=== PATIENT | male | born 1935 | race Caucasian/White ===

== ENCOUNTER 2016-07-17 14:19 | Inpatient (IN) ==
[2016-07-20] MEDS ORDERED: *HR* HYDROcodone/Acet 5/325 mg TABLET PO PRN (18:03)
[2016-07-20] MEDS ORDERED: *HR* Warfarin 1 MG TABLET PO ONE (18:36)
[2016-07-20] MEDS: Metoprolol XL (24 HR) Succ 50 MG TAB.ER.24H PO SCH (22:56)
[2016-07-21 05:37] LABS: Basophils % 0.1 %; Eosinophils # 0.1 K/mcL (0.0-0.6); Eosinophils % 0.4 %; Hematocrit 38.5 % (37.5-50.1); Hemoglobin 12.5 g/dL (12.9-16.9); Immature Granulocytes % 0.8 % (0-4); Lymphocytes # 0.9 K/mcL (0.6-4.6); Mean Corpuscular HGB Conc 32.5 g/dL (31.6-35.5); Mean Corpuscular Hemoglobin 30.9 pg (28.0-33.3); Mean Corpuscular Volume 95.3 fL (83.0-100.0); Mean Platelet Volume 9.6 fL (9.4-12.4); Monocytes # 1.1 K/mcL (0.0-1.3); Monocytes % 8.1 %; Neutrophils # 10.9 K/mcL (1.6-8.9); Platelet Count 427 K/mcL (140-400); Red Blood Count 4.04 M/mcL (4.19-5.50); Red Cell Distribution Width 19.8 % (11.5-14.5); Segmented Neutrophils % 83.6 %
[2016-07-21 05:39] LABS: INR 2.6; Prothrombin Time 29.1 Seconds (9.4-12.1)
[2016-07-21] MEDS ORDERED: *HR* Amiodarone 200 MG TABLET PO SCH (09:00)
[2016-07-21] MEDS: Metoprolol XL (24 HR) Succ 50 MG TAB.ER.24H PO SCH ×2 (09:55→20:50)
[2016-07-21] MEDS: Cholecalciferol (D-3) 1,000 UNIT TABLET PO SCH (09:55)
[2016-07-21] MEDS: PredniSONE 20 MG TABLET PO SCH (09:56)
[2016-07-21] MEDS: Aspirin 81 MG TAB.CHEW PO SCH (09:56)
[2016-07-21 14:10] LABS: BUN/Creatinine Ratio 32 (6-26); Blood Urea Nitrogen 34 mg/dL (8-26); Calcium 8.6 mg/dL (8.6-10.8); Carbon Dioxide 26 mEq/L (19-29); Chloride 103 mEq/L (98-109); Glucose 96 mg/dL (70-99); Osmolality,Calculated 293 (280-300); Potassium 4.1 mEq/L (3.5-4.5); Sodium 138 mEq/L (136-145); eGFR For African Americans > 60 (> 60); eGFR For Non-African Americans > 60 (> 60)
[2016-07-21] MEDS: *HR* Amiodarone 200 MG TABLET PO SCH (17:56)
[2016-07-21] MEDS ORDERED: Warfarin perPT PO ONE (18:00)
[2016-07-21] MEDS ORDERED: *HR* Warfarin 1 MG TABLET PO ONE (18:00)
[2016-07-21] MEDS ORDERED: MOM Conc 10 ML UD.LIQ PO SCH (21:00)
[2016-07-22 05:50] LABS: INR 2.3
[2016-07-22] MEDS: Cholecalciferol (D-3) 1,000 UNIT TABLET PO SCH (11:20)
[2016-07-22] MEDS: Aspirin 81 MG TAB.CHEW PO SCH (11:21)
[2016-07-22] MEDS: Metoprolol XL (24 HR) Succ 50 MG TAB.ER.24H PO SCH ×2 (11:21→20:35)
[2016-07-22] MEDS: PredniSONE 20 MG TABLET PO SCH (11:22)
--- NOTE | 2016-07-22 13:18 | Internal Med History&Physical ---
Date of Encounter: 07/22/16 Time of Encounter: 13:15 Assessment and Plan (1) S/P hip replacement Current visit: Yes Status: Acute PT and OT to work on gait, transfer endurance balance. Patient is doing well at this time. Very eager for rehabilitation Qualifiers: Laterality: right Qualified Code(s): Z96.641 - Presence of right artificial hip joint (2) Atrial fibrillation Current visit: Yes Status: Chronic Stable rate at this time Qualifiers: Atrial fibrillation type: persistent Qualified Code(s): I48.1 - Persistent atrial fibrillation Internal Medicine - H&P: HPI Admitted From: Intrahospital Transfer Plans for Post Hospital Care: at Medical Facility History of present illness: Mr. Evans is a 81 year old male transferred to this facility status post total right hip replacement. Patient has minimal O stump pain. He denies any shortness of breath. No chest pain. No nausea vomiting. Good oral intake. Past Med Surg Social Fam HX - Past Medical History Medical history: atrial fibrillation, hyperlipidemia, hypertension, other Psychiatric history: no psych history - Past Surgical History Surgical History: non-contributory - Social History Smoking Status: Never smoker Smokeless Tobacco Status: No Alcohol use: none Drug use: none - Family History Father Living Status: Hx Family Cardiac Disorders: Yes Mother Living Status: Internal Medicine - H&P: Meds Cholecalciferol (D-3) [Vitamin D] 1,000 unit PO DAILY 07/04/16 [History] Amiodarone [Cordarone] 200 mg PO DAILY #30 tablet 07/20/16 [Rx] Aspirin 81 mg PO DAILY #30 tab.chew 07/20/16 [Rx] Diltiazem [Cardizem] 30 mg PO QID #120 tablet 07/20/16 [Rx] HYDROcodone/Acet 5/325 mg [Simpson 5-325 mg] 1 tab PO Q4HR PRN #20 tablet [Rx] Metoprolol XL (24 HR) Succ [Toprol Xl] 75 mg PO BID #60 tab.er.24h 07/20/16 [Rx] PredniSONE 10 mg PO DAILY #3 tablet 07/20/16 [Rx] PredniSONE 20 mg PO DAILY #2 tablet 07/20/16 [Rx] Warfarin perPT [Coumadin perPT] 1 each PO DAILY@1800 PRN #0 each 04/14/17 [Rx] Allergies diphenhydramine [From Benadryl] Adverse Reaction (Verified 07/20/16 19:07) Confusion All Systems PM: A 10-system review of systems was performed and is negative for pertinent findings except as documented above in the HPI. - Cardiovascular Cardiovascular ROS IM: no chest pain, no diaphoresis, no dyspnea, no lightheadedness, no palpitations, no syncope - Gastrointestinal Gastrointestinal: no abdominal pain, no diarrhea, no hematemesis, no hematochezia, no melena, no nausea, no vomiting - Musculoskeletal Musculoskeletal ROS IM: arthralgias, stiffness - Integumentary Integumentary IM: no rash, no unusual bruising - Neurological Neurological ROS: no confusion, no convulsions, no focal weakness, no numbness, no tingling, no tremor(s) - Constitutional Vitals: Temp Pulse Resp BP Pulse Ox 97.7 F 70 18 160/98 96 07/22/16 07:18 07/22/16 07:18 07/22/16 07:18 07/22/16 07:18 07/22/16 07:18 General appearance: Present: A&O X 3, pleasant, no acute distress - Respiratory Respiratory exam: Present: CTAB. Absent: accessory muscle use, rales, rhonchi, wheezes - Cardiovascular Cardiovascular exam: Present: irregular rhythm, rubs. Absent: diastolic murmur - GI/Abdominal GI/Abdominal exam: Present: normal bowel sounds, soft, no peritoneal signs. Absent: distended, tenderness - Extremities Exam Extremities exam: Present: warm, radial pulses palpable and symetrical. Absent : calf tenderness, cyanotic, pedal edema - Expanded Lower Extremities Exam Hip exam: Present: erythema, swelling, tenderness Gait: Present: antalgic - Incison Incision: Present: clean and dry Internal Med - H&P Results - Labs CBC & Chem 7: 07/21/16 05:20 07/21/16 05:20 Labs: BMP 07/21/16 05:20 Sodium 138 Potassium 4.1 Chloride 103 Carbon Dioxide 26 BUN 34 H Creatinine 1.06 Glucose 96 Calcium 8.6
[2016-07-22] MEDS ORDERED: MOM Conc 10 ML UD.LIQ PO PRN (17:13)
[2016-07-22] MEDS ORDERED: *HR* Warfarin 2 MG TABLET PO ONE (18:00)
[2016-07-22] MEDS: *HR* Amiodarone 200 MG TABLET PO SCH (19:02)
[2016-07-23 06:11] LABS: INR 2.4; Prothrombin Time 26.9 Seconds (9.4-12.1)
[2016-07-23 07:13] LABS: Basophils % 0.1 %; Eosinophils # 0.2 K/mcL (0.0-0.6); Eosinophils % 1.7 %; Hematocrit 41.7 % (37.5-50.1); Hemoglobin 13.4 g/dL (12.9-16.9); Immature Granulocytes % 0.8 % (0-4); Lymphocytes # 0.9 K/mcL (0.6-4.6); Lymphocytes % 8.5 %; Mean Corpuscular HGB Conc 32.1 g/dL (31.6-35.5); Mean Corpuscular Hemoglobin 30.7 pg (28.0-33.3); Mean Corpuscular Volume 95.4 fL (83.0-100.0); Mean Platelet Volume 9.7 fL (9.4-12.4); Monocytes % 8.9 %; Neutrophils # 8.7 K/mcL (1.6-8.9); Platelet Count 373 K/mcL (140-400); Red Blood Count 4.37 M/mcL (4.19-5.50); Red Cell Distribution Width 19.8 % (11.5-14.5)
[2016-07-23 07:20] LABS: BUN/Creatinine Ratio 31 (6-26); Blood Urea Nitrogen 36 mg/dL (8-26); Calcium 8.5 mg/dL (8.6-10.8); Carbon Dioxide 25 mEq/L (19-29); Chloride 104 mEq/L (98-109); Glucose 87 mg/dL (70-99); Osmolality,Calculated 298 (280-300); Potassium 3.8 mEq/L (3.5-4.5); Sodium 140 mEq/L (136-145); eGFR For African Americans > 60 (> 60); eGFR For Non-African Americans 60 (> 60)
[2016-07-23] MEDS: Aspirin 81 MG TAB.CHEW PO SCH (08:48)
[2016-07-23] MEDS: Metoprolol XL (24 HR) Succ 50 MG TAB.ER.24H PO SCH ×2 (08:48→21:33)
[2016-07-23] MEDS: Cholecalciferol (D-3) 1,000 UNIT TABLET PO SCH (08:49)
[2016-07-23] MEDS: PredniSONE 10 MG TABLET PO SCH (08:49)
[2016-07-23] MEDS: Acetaminophen 325 MG TABLET PO PRN ×3 (12:32→21:32)
--- NOTE | 2016-07-23 15:05 | Internal Med Progress Note ---
Date of Encounter: 07/23/16 Time of Encounter: 15:03 - Assessment and plan (1) Closed right hip fracture Current Visit: No Status: Acute Assessment and plan: Patient had a total replacement for fall with hip fracture Qualifiers: Encounter type: initial encounter Qualified Code(s): S72.001A - Fracture of unspecified part of neck of right femur, initial encounter for closed fracture (2) S/P hip replacement Current Visit: Yes Status: Acute Assessment and plan: Reason for the patient's placement in rehabilitation. Qualifiers: Laterality: right Qualified Code(s): Z96.641 - Presence of right artificial hip joint - Time Spent With Patient less than 15 minutes - Subjective Interval history: This patient does staff states is doing very well. They state he gets up gets stressed does his therapy like someone has even had a surgical procedure - Constitutional Vitals: Temp Pulse Resp BP Pulse Ox 98.9 F 79 18 161/93 98 07/23/16 07:00 07/23/16 07:00 07/23/16 07:00 07/23/16 07:00 07/23/16 07:00 General appearance: Present: A&O X 3, pleasant, no acute distress - Head Head exam: Present: atraumatic, normal inspection, normocephalic - Neck Neck exam general surgery: Present: supple, trachea midline. Absent: lymphadenopathy - Cardiovascular Cardiovascular exam: Present: RRR, +S1, +S2. Absent: diastolic murmur, gallop, rubs, systolic murmur Internal Medicine: Result - Labs CBC & Chem 7: 07/23/16 06:40 07/23/16 06:40 Labs: Lab looks stable Short CBC 07/23/16 Range/Units 06:40 WBC 10.8 (4.3-11.1) K/mcL Hgb 13.4 (12.9-16.9) g/dL Hct 41.7 (37.5-50.1) % Plt Count 373 (140-400) K/mcL Neutrophils # 8.7 (1.6-8.9) K/mcL BMP 07/23/16 Lab looks good Sodium 140 Potassium 3.8 Chloride 104 Carbon Dioxide 25 BUN 36 H Creatinine 1.17 Glucose 87 Calcium 8.5 L - ABG Interpretation ABG results: PT/INR, D-dimer PT 26.9 Seconds (9.4-12.1) H 07/23/16 05:35 Consult Discharge Plan - Plan Referrals: Leia Fang CNP [Primary Care Provider] -
[2016-07-23] MEDS: *HR* Amiodarone 200 MG TABLET PO SCH (17:09)
[2016-07-23] MEDS ORDERED: *HR* Warfarin 1 MG TABLET PO ONE (18:00)
[2016-07-23] MEDS: Warfarin perPT PO SCH (18:26)
[2016-07-24 05:32] LABS: INR 3.2; Prothrombin Time 36.1 Seconds (9.4-12.1)
[2016-07-24] MEDS: Cholecalciferol (D-3) 1,000 UNIT TABLET PO SCH (08:34)
[2016-07-24] MEDS: Aspirin 81 MG TAB.CHEW PO SCH (08:34)
[2016-07-24] MEDS: PredniSONE 10 MG TABLET PO SCH (08:34)
[2016-07-24] MEDS: Metoprolol XL (24 HR) Succ 50 MG TAB.ER.24H PO SCH ×2 (08:34→19:45)
--- NOTE | 2016-07-24 15:38 | Internal Med Progress Note ---
Date of Encounter: 07/24/16 Time of Encounter: 15:37 - Assessment and plan (1) Closed right hip fracture Current Visit: No Status: Acute Assessment and plan: Patient tripped over a creeper and ended up fracturing his hip Qualifiers: Encounter type: initial encounter Qualified Code(s): S72.001A - Fracture of unspecified part of neck of right femur, initial encounter for closed fracture (2) S/P hip replacement Current Visit: Yes Status: Acute Assessment and plan: Patient had a hip replacement after the fracture Qualifiers: Laterality: right Qualified Code(s): Z96.641 - Presence of right artificial hip joint - Time Spent With Patient less than 15 minutes - Subjective Interval history: Patient is doing very well. He is up he is dressed is cooperating with all modalities of therapy will be discharged home tomorrow - Constitutional Vitals: Temp Pulse Resp BP Pulse Ox 97.7 F 70 18 153/84 98 07/24/16 08:57 07/24/16 08:57 07/24/16 08:57 07/24/16 08:57 07/24/16 08:57 General appearance: Present: A&O X 3, pleasant, no acute distress - Head Head exam: Present: atraumatic, normal inspection, normocephalic - Neck Neck exam general surgery: Present: supple, trachea midline. Absent: lymphadenopathy - Respiratory Respiratory exam: Present: CTAB. Absent: accessory muscle use, rales, rhonchi, wheezes - Cardiovascular Cardiovascular exam: Present: RRR, +S1, +S2. Absent: diastolic murmur, gallop, rubs, systolic murmur - GI/Abdominal GI/Abdominal exam: Present: normal bowel sounds, soft, no peritoneal signs. Absent: distended, tenderness Internal Medicine: Result - Labs CBC & Chem 7: 07/23/16 06:40 07/23/16 06:40 Labs: Lab is good - ABG Interpretation ABG results: PT/INR, D-dimer PT 36.1 Seconds (9.4-12.1) H 07/24/16 05:15 Consult Discharge Plan - Plan Referrals: Leia Fang, [employer] [Primary Care Provider] -
[2016-07-24] MEDS: *HR* Amiodarone 200 MG TABLET PO SCH (17:51)
[2016-07-24] MEDS: Warfarin perPT PO SCH (17:51)
[2016-07-25 05:24] LABS: Prothrombin Time 33.5 Seconds (9.4-12.1)
[2016-07-25 06:56] VITALS: BP 151/97
[2016-07-25] MEDS: Metoprolol XL (24 HR) Succ 50 MG TAB.ER.24H PO SCH (08:17)
[2016-07-25] MEDS: Aspirin 81 MG TAB.CHEW PO SCH (08:17)
[2016-07-25] MEDS: Cholecalciferol (D-3) 1,000 UNIT TABLET PO SCH (08:17)
[2016-07-25] MEDS: PredniSONE 10 MG TABLET PO SCH (08:17)
--- NOTE | 2016-07-25 11:51 | Discharge Summary ---
Date of Encounter: 07/25/16 Time of Encounter: 11:47 - Discharge Diagnosis (1) Closed right hip fracture Priority: Primary Status: Acute Comments: She has done well and is being discharged with his today Qualifiers: Encounter type: initial encounter Qualified Code(s): S72.001A - Fracture of unspecified part of neck of right femur, initial encounter for closed fracture (2) S/P hip replacement Priority: Primary Status: Acute Comments: Patient has received very satisfactory rehabilitation and is had no pain medicine except for Tylenol and doing very well Qualifiers: Laterality: right Qualified Code(s): Z96.641 - Presence of right artificial hip joint - Discharge Medications Home Medications: Cholecalciferol (D-3) [Vitamin D] 1,000 unit PO DAILY 07/04/16 [History] Amiodarone [Cordarone] 200 mg PO DAILY #30 tablet 07/20/16 [Rx] Aspirin 81 mg PO DAILY #30 tab.chew 07/20/16 [Rx] Diltiazem [Cardizem] 30 mg PO QID #120 tablet 07/20/16 [Rx] HYDROcodone/Acet 5/325 mg [Morse 5-325 mg] 1 tab PO Q4HR PRN #20 tablet [Rx] Metoprolol XL (24 HR) Succ [Toprol Xl] 75 mg PO BID #60 tab.er.24h 07/20/16 [Rx] PredniSONE 10 mg PO DAILY #3 tablet 07/20/16 [Rx] PredniSONE 20 mg PO DAILY #2 tablet 07/20/16 [Rx] Warfarin perPT [Coumadin perPT] 1 each PO DAILY@1800 PRN #0 each 07/20/16 [Rx] Allergies/Adverse Reactions: Allergies diphenhydramine [From Benadryl] Adverse Reaction (Verified 07/20/16 19:07) Confusion Date of admission: 07/20/16 17:26 Primary care physician: Leia Fang, Consults: 07/20/16 18:12 Consult to Occupational Therapy [CONS] Routine Comment: Evaluate, develop and implement POC Consult to Physical Therapy [CONS] Routine Comment: Evaluate, develop and implement POC Consult to Recreational Therapy [CONS] Routine Comment: Evaluate, develop and implement POC Consult to Assistant Paralegal [CONS] Routine Reason for SW Consult: for discharge planning Discharging clinician: Msaon Reeder Anticipated date of discharge: 07/25/16 - Patient Status Disposition: Home, Self-Care Condition: Good Functional capacity at discharge: uses cane/walker Overall status at discharge: patient is progressing back to baseline - Discharge Instructions Follow Up With: Leia Fang [employer]ER [Primary Care Provider] - - Diet and Activity Activity: ambulate only with your walker Diet: advance to your usual diet Interval History: Patient came here postop for hip replacement as done very well Hospital course: Mr. Evans is a 81 year old male She will be discharged today and has done very well he dresses himself he ambulates with a walker and has been getting around the unit very satisfactorily - Time Spent with Patient Total time spent providing and/or coordinating discharge services: Less than 30 minutes - Constitutional Vitals: Temp Pulse Resp BP Pulse Ox 98.8 F 76 18 151/97 97 07/25/16 06:56 07/25/16 06:56 07/25/16 06:56 07/25/16 06:56 07/25/16 06:56 General appearance: Present: A&O X 3, pleasant, no acute distress - Head Head exam: Present: atraumatic, normal inspection, normocephalic - Neck Neck exam general surgery: Present: supple, trachea midline. Absent: lymphadenopathy - Respiratory Respiratory exam: Present: CTAB. Absent: accessory muscle use, rales, rhonchi, wheezes - Cardiovascular Cardiovascular exam: Present: RRR, +S1, +S2. Absent: diastolic murmur, gallop, rubs, systolic murmur
== END 2016-07-25 14:45 | disposition home or self-care (01) | DRG 560 ==
LOC: INPGRE 07-20 17:26
PROVIDERS: ADMIT Internal Medicine; ATTEND Internal Medicine